=== PATIENT | female | born 1960 | race African-American/Black ===

== ENCOUNTER 2017-07-18 18:41 | Emergency (ER) | payer MEDICAID ==
[~2017-07-18] VITALS: Ht 160 cm; Wt 64.0 kg
[2017-07-18 18:46] VITALS: BP 135/69
[2017-07-18] MEDS ORDERED: FERR220S6 PO (18:48)
== END 2017-07-18 22:55 | disposition left against medical advice (07) ==
LOC: ER 18:41
DX: M79.646 Pain in unspecified finger(s) (principal); Z53.21 Procedure and treatment not carried out due to patient leaving prior to being seen by health care provider